=== PATIENT | female | born 1960 | race Caucasian/White ===

== ENCOUNTER 2019-06-24 16:06 | Inpatient (IN) ==
[2019-06-24] MEDS ORDERED: NS 1,000 ML IV ONE (16:39)
[2019-06-24] MEDS ORDERED: SODIUM CHLORIDE 0.9% INJ ONE (16:39)
[2019-06-24] MEDS ORDERED: PHENERGAN IV ONE (16:39)
[2019-06-24] MEDS ORDERED: MORPHINE IV ONE (16:41)
--- NOTE | 2019-06-24 16:47 | PROVIDER DOCUMENTATION ---
HPI-General Adult - General Chief Complaint: Return/Recheck Stated Complaint: +FLU 06/15 NOT BETTER Time Seen by Provider: 06/24/19 16:14 Source: patient, old records Allergies/Adverse Reactions: Patient Allergies Allergy/AdvReac Type Severity Reaction Status Date / Time spironolactone Allergy RASH Verified 06/24/19 16:27 ondansetron [From Zofran] AdvReac HEADACHE Verified 06/24/19 16:27 Home Medications: Home Medication List Medication Instructions Recorded Confirmed Last Taken Type Chlorthalidone 25 mg PO DAILY 06/16/18 06/24/19 Unknown History Lamivudine 150 mg PO DAILY 06/16/18 06/24/19 Unknown History Levothyroxine [Synthroid] 75 mcg PO DAILY 06/16/18 06/24/19 Unknown History Promethazine [Phenergan] 50 mg PO Q6H PRN 06/16/18 06/24/19 Unknown History Tizanidine HCl 2 mg PO BID 06/16/18 06/24/19 Unknown History Tacrolimus [Prograf] 0.5 mg PO DAILY 12/05/18 06/24/19 Unknown History Oseltamivir [Tamiflu] 75 mg PO BID #10 cap 06/15/19 06/24/19 Unknown Rx - History of Present Illness -Gen Adult Nature of Presenting Problems: Patient is a 59yo F who presents with numerous complaints. Complains of L sided neck pain radiating down her L arm, CP, pain with inspiration, cough, nausea/vom iting, and no urinary output x2 days. Reports she was recently diagnosed with the Flu 9 days ago, and has not gotten any better. States hx of heart valve regurgitation for which she sees a Under Water Assistant yearly for. Denies fever/chills, abdominal pain, diarrhea, or SOB. Location of Pain/Injury: reports: neck (L), chest, upper extremity Pain Radiation: reports: arm(s) (L) Quality of Pain: reports: aching Severity: reports: moderate Onset/Duration: reports: other (9 days ago) Timing: reports: still present, getting worse Modifying Factors: improves with: nothing Associated Symptoms: reports: arm pain (L), back/neck pain (L neck), chest pain, cough, genitourinary problems, malaise, nausea, vomiting. denies: diarrhea, f ever/chills, shortness of breath Similar Symptoms Previously?: Yes Recently seen or treated by another doctor?: Yes (seen in ED 9 days ago) Review of Systems - Adult - REVIEW OF SYSTEMS - ADULT Constitutional: reports: no symptoms reported. denies: fever Eyes: reports: no symptoms reported Ears, Nose, Mouth & Throat: reports: no symptoms reported. denies: ear pain, throat pain Cardiovascular: reports: see HPI, chest pain. denies: palpitations, syncope Respiratory: reports: see HPI, cough, pleurisy. denies: shortness of breath Gastrointestinal: reports: see HPI, nausea, vomiting. denies: abdominal pain, diarrhea Genitourinary: reports: see HPI, urinary retention Musculoskeletal: reports: see HPI, neck pain (L side) Integumentary: reports: no symptoms reported Neurological: reports: no symptoms reported Psychiatric: reports: no symptoms reported Endocrine: reports: no symptoms reported Past History - Adult - PAST MEDICAL HISTORY-ADULT Review of Records: reports: Old Records Reviewed, Nursing Assessment Review, Medications Reviewed Major Childhood Illnesses: reports: denies history Gastrointestinal: reports: liver disease (transplant) Genitourinary: reports: kidney disease Endocrine/Immune: reports: thyroid disorder - PRIOR SURGERIES/PROCEDURES Surgical/Procedure History: reports: other (liver transplant) - IMMUNIZATION STATUS Childhood Immunizations: See Nurse Assessment Flu Vaccine: See Nurse Assessment - FAMILY HISTORY Family History: reviewed, not pertinent - SOCIAL HISTORY Smoking: non-smoker Physical Exam-General - PHYSICAL EXAM-ADULT Initial Vital Signs Reviewed: Yes - CONSTITUTIONAL General Appearance: alert, mild distress. negative: lethargic, slow to respond, obtunded - EYES Eyes: PERRL/EOMI, pink conjunctivae. negative: EOM palsy, scleral icterus - HEAD, EARS, NOSE, MOUTH & THROAT HENMT: normocephalic/atraumatic, moist mucous membranes, other (dry mucous membranes). negative: angioedema - NECK Neck: supple, normal inspection, limited range of motion (per patient; patient will not cooperate with exam/will not turn head), other (TTP L c-spine paraspino us muscles) - RESPIRATORY Respiratory: lungs clear, normal breath sounds, no respiratory distress, no accessory muscle use. negative: chest non-tender (TTP central chest), crackles, rales, rhonchi, stridor, wheezing, retractions, splinting, crepitus - CARDIOVASCULAR Cardiovascular: regular rate, rhythm - GASTROINTESTINAL (ABDOMEN) Abdominal Exam: normal bowel sounds, non tender, soft. negative: guarding, rigid, rebound, tenderness - MUSCULOSKELETAL Back Exam: normal inspection Extremity: normal range of motion - SKIN Integumentary: normal color, warm/dry. negative: cyanosis, jaundice, mottled, pallor - NEUROLOGIC Neurologic: grossly normal Progress - PLAN OF CARE/RESULTS Progress/Plan/Lab Results: Vital Signs - 8 hr 06/24/19 16:26 Temperature 99.1 F Pulse Rate 83 Respiratory Rate 18 Blood Pressure 190/84 O2 Sat by Pulse Oximetry 97 Orders Category Date Time Status Nursing- Obtain EKG ONCE Care 06/24/19 16:38 Ordered Saline Loc NOW Care 06/24/19 16:37 Ordered CHEST-2 VIEWS [RAD] Stat Exams 06/24/19 16:38 Ordered c-spine [CERVICAL SPINE COMPLETE] [RAD] Stat Exams 06/24/19 16:38 Ordered CBC WITH ELECTRONIC DIFF [HEME] Stat Lab 06/24/19 16:37 Uncollected CK PROFILE [SP CHEM] Stat Lab 06/24/19 16:38 Uncollected COMPREHENSIVE METABOLIC PANEL [CHEM] Stat Lab 06/24/19 16:37 Uncollected TROPONIN T Stat Lab 06/24/19 16:37 Uncollected URINALYSIS W/POSS RFLX CULT [URINALYSIS] Stat Lab 06/24/19 16:37 Uncollected Morphine Med 06/24/19 16:41 Once 2 mg IV NOW ONE Ns 1000 ml IV Bolus X1 Med 06/24/19 16:39 Ordered 0.9% Sodium Chloride Inj [Ns] 1,000 ml IV 999 mls/hr Promethazine [Phenergan] Med 06/24/19 16:39 Once 12.5 mg IV NOW ONE Sodium Chloride 0.9% Med 06/24/19 16:39 Once 10 ml INJ NOW ONE EKG [EKG] Stat Ther 06/24/19 16:37 Ordered Result Diagrams: 06/24/19 17:14 06/24/19 17:14 - REASSESSMENT Reassessment #1 Time Reassessed: 18:24 Status: unchanged Reassessment Comment: Hospitalist paged for admission - XRAY 1 XRAY: Bilateral XRAY Study: Chest Impression: See EMR Report ([facility] - [address], [address], [place] [address] [facility] - [facility] [place] [address] Department of Imaging Patient: AZALIA VILLAREAL Date: 06/24/19MR#: [id number] : 1960DM Status: REG ERAcct#: [id number] Age/Sex: 59/FRoom/Bed: Loc: ED Ordering Physician: Marycruz Mathias Family Physician: Rina Milton MD Reason for Procedure: Cough; inspiratory pain Signed EXAM: CHEST-2 VIEWS HISTORY: Cough; inspiratory pain TECHNIQUE: Two views COMPARISON: 06/15/2019 FINDINGS: The lungs are well expanded. The heart is not enlarged. The vessels are not distended. There are tiny left lower lobe infiltrates. No pleural effusions. Mild lower thoracic compression fracture. This is unchanged. IMPRESSION: Tiny left lower lobe infiltrates Electronically signed by Vinicio Barrow 06/24/2019 5:22 PM 06/24/19 1722 Interpreting Physician: Vinicio Barrow MD Dictated Date/Time: 06/24/19 1721 cc: Marycruz Carter; Rina Milton MD) 2 XRAY: Bilateral XRAY Study: C-Spine Impression: See EMR Report ([facility] - [address], [address], [place] [address] [place] [place] [address] [place] [address] Department of Imaging Patient: AZALIA VILLAREAL Date: 06/24/19MR#: [id number] : 1960DM Status: REG ERAcct#: [id number] Age/Sex: 59/FRoom/Bed: Loc: ED Ordering Physician: Marycruz Mathias Family Physician: Rina Milton MD Reason for Procedure: Neck pain Signed EXAM: CERVICAL SPINE COMPLETE HISTORY: Neck pain TECHNIQUE: AP and lateral with obliques, five views COMPARISON: None. FINDINGS: There is good alignment to the cervical spine. No precervical soft tissue swelling. No subluxation. Small degenerative bone spurring. IMPRESSION: Mild degenerative changes Electronically signed by Vinicio Barrow 06/24/2019 5:29 PM 06/24/191728 Interpreting Physician: Vinicio Barrow MD Dictated Date/Time: 06/24/191727 cc: Marycruz Carter; Rina Milton MD) - CONSULTS/PCP/HOSPITALIST Notification #1 *Consult/PCP/Hospitalist*: Dr. Gonzalez, Hospitalist Time Discussed: 18:30 Reason/Comments: LLL PNA; CP; immunocompromised Consult Disposition: Admit Departure - Departure Date of Disposition Decision: 06/24/19 Time of Disposition Decision: 18:30 DIAGNOSIS: Neck pain, History of influenza, S/P liver transplant, Dehydration Pneumonia Qualifiers: Pneumonia type: due to unspecified organism Laterality: left Lung location: lower lobe of lung Qualified Code(s): J18.1 - Lobar pneumonia, unspecified organism Chest pain Qualifiers: Chest pain type: unspecified Qualified Code(s): R07.9 - Chest pain, unspecified Nausea & vomiting Qualifiers: Vomiting type: unspecified Vomiting Intractability: unspecified Qualified Code(s): R11.2 - Nausea with vomiting, unspecified Disposition: ADMITTED INPATIENT 09 Certified Medical Emergency: Emergent Condition: Stable Referrals and Follow-Ups: Rina Milton MD [Primary Care Provider] - - Critical Care Note This patient required my direct & personal management of CC.: No Attestation - Physician/ KATE Attestation Patient care was provided by Advanced Practice Provider:: Yes Advanced Practice Provider:: Marycruz Carter Advanced Practice Provider documentation review:: The Mid-level provider documentation, treatment plan and medical decision making was reviewed by the physician who agrees with all treatment and medical decision making by the MLP. The physician spent face to face time with patient:: No Advanced Practice Provider documentation review:: Supervising physician onsite and consulted in the evaluation and care of this patient. The physician did not have a face to face encounter with the patient.
--- NOTE | 2019-06-24 17:23 | ED EKG INTERP ---
This chart was entered by Hanna Russell Scribe, acting as scribe for Ang Aguila MD. EKG Interpretation - EKG Time of EKG reading by physician:: 17:23 EKG Read and Signed by:: Ang Aguila EKG Interpretation (*Must complete 3 of following elements*): Abnormal Rate: 73 Rhythm: NSR [place]: normal QRS: normal SD Interval: normal ST Wave: non-specific ST changes Attestation - Physician/ KATE Attestation Patient care was provided by Advanced Practice Provider:: Yes Advanced Practice Provider:: Marycruz Carter Advanced Practice Provider documentation review:: The Mid-level provider documentation, treatment plan and medical decision making was reviewed by the physician who agrees with all treatment and medical decision making by the P. The physician spent face to face time with patient:: No Advanced Practice Provider documentation review:: Supervising physician onsite and consulted in the evaluation and care of this patient. The physician did not have a face to face encounter with the patient. This chart was documented by the indicated scribe, (Hanna Russell Scribe) and accurately reflects the services I performed and decisions made by me, Ang Aguila MD, as attested by the provider's signature.
--- NOTE | 2019-06-24 17:24 | Diag Imaging Result Doc PS360 ---
EXAM: CHEST-2 VIEWS HISTORY: Cough; inspiratory pain TECHNIQUE: Two views COMPARISON: 06/15/2019 FINDINGS: The lungs are well expanded. The heart is not enlarged. The vessels are not distended. There are tiny left lower lobe infiltrates. No pleural effusions. Mild lower thoracic compression fracture. This is unchanged. IMPRESSION: Tiny left lower lobe infiltrates Electronically signed by Vinicio Barrow 06/24/2019 5:22 PM
--- NOTE | 2019-06-24 17:31 | Diag Imaging Result Doc PS360 ---
EXAM: CERVICAL SPINE COMPLETE HISTORY: Neck pain TECHNIQUE: AP and lateral with obliques, five views COMPARISON: None. FINDINGS: There is good alignment to the cervical spine. No precervical soft tissue swelling. No subluxation. Small degenerative bone spurring. IMPRESSION: Mild degenerative changes Electronically signed by Vinicio Barrow 06/24/2019 5:29 PM
[2019-06-24 17:34] LABS: BASO# 0.02 X1000 (0.0-0.2); BASO% 0.3 % (0.0-0.8); EOS# 0.05 X1000 (0.0-0.7); EOS% 0.7 % (0.0-10.0); HEMATOCRIT 40.7 % (37.0-47.0); HEMOGLOBIN 14.3 g/dL (12.0-16.0); IMM GRAN# 0.04 X1000 (0.0-0.04); IMM GRAN% 0.5 % (0.0-0.5); LYMPH# 0.91 X1000 (1.2-3.4); LYMPH% 12.5 % (20.5-51.1); MCH 33.6 PG (27-31); MCHC 35.1 g/dL (33-37); MCV 95.8 FL (81-99); MONO# 1.21 X1000 (0.11-0.59); MONO% 16.6 % (1.7-9.3); MPV 10.4 FL (7.4-10.4); NEUT# 5.07 X1000 (1.4-6.5); NEUT% 69.4 % (42.2-75.2); PLT 192 X1000 (130-400); RBC 4.25 XMIL (4.2-5.4); RDW 11.6 % (11.5-14.5)
[2019-06-24] MEDS ORDERED: ROCEPHIN 1 GM in NS 50 ML IV ONE (17:41)
[2019-06-24 18:09] LABS: AGAP 19; ALB/GLOB RATIO 0.9; ALBUMIN 3.8 g/dL (3.5-5.0); ALKALINE PHOSPHATASE 59 U/L (32-104); BUN 19 mg/dL (8-22); CALCIUM 8.8 mg/dL (8.8-10.2); CHLORIDE 99 mmol/L (98-107); CK PROFILE 49 U/L (24-173); COSMO 282; CREATININE 0.9 mg/dL (0.5-0.9); ESTIMATED GFR > 60; GLUCOSE 113 mg/dL (70-104); GOT 23 U/L (10-30); GPT 14 U/L (10-36); POTASSIUM 3.7 mmol/L (3.5-5.1); SODIUM 140 mmol/L (136-145); TCO2 22 mmol/L (25-35); TOTAL BILIRUBIN 1.12 mg/dL (0.20-1.00); TOTAL PROTEIN 7.8 g/dL (6.3-8.3)
[2019-06-24 18:24] LABS: URINE SOURCE CLEAN CATCH
[2019-06-24 18:28] LABS: BILIRUBIN URINE SMALL (NEGATIVE); BLOOD URINE NEGATIVE (NEGATIVE); COLOR YELLOW; GLUCOSE URINE NEGATIVE (NEGATIVE); KETONE URINE 40 mg/dL (NEGATIVE); LEUKOCYTES URINE TRACE (NEGATIVE); NITRITE URINE NEGATIVE (NEGATIVE); PROTEIN URINE 200 mg/dL (NEGATIVE); SP GRAVITY URINE 1.034; TURBIDITY URINE HAZY (CLEAR); UROBILINOGEN URINE 6 mg/dL (NORMAL)
[2019-06-24 18:29] LABS: UR EPITHELIAL CELLS >10 /HPF (<10); URINE BACTERIA NEGATIVE /HPF; URINE RBC <10 /HPF (<10)
[2019-06-24 18:43] LABS: UR AMPHETAMINES QUAL NONE DETECTED (NONE DETECT); UR BARBITUATES QUAL NONE DETECTED (NONE DETECT); UR BENZODIAZEPIN QUAL NONE DETECTED (NONE DETECT); UR CANNABINOIDS QUAL PRESUMPTIVE POSITIVE (NONE DETECT); UR COCAINE QUAL NONE DETECTED (NONE DETECT); UR METHADONE QUAL NONE DETECTED (NONE DETECT); UR OPIATES QUAL PRESUMPTIVE POSITIVE (NONE DETECT); UR OXYCODONE QUAL NONE DETECTED (NONE DETECT); UR PCP QUAL NONE DETECTED (NONE DETECT)
[2019-06-24] MEDS ORDERED: CATAPRES PO ONE (20:59)
[2019-06-24] MEDS: MORPHINE IV PRN (23:26)
[2019-06-25] MEDS ORDERED: NS 1,000 ML IV SCH (02:15)
[2019-06-25] MEDS ORDERED: SODIUM CHLORIDE 0.9% INJ SCH (02:20)
[2019-06-25] MEDS ORDERED: PHENERGAN IV PRN (02:20)
[2019-06-25] MEDS: DUONEB (A & A) INH SCH ×3 (02:48→10:47)
[2019-06-25] MEDS: ZITHROMAX 500 MG/NS 500 MG/250 ML IVPB IV SCH (03:00)
[2019-06-25 05:06] LABS: BASO# 0.01 X1000 (0.0-0.2); BASO% 0.1 % (0.0-0.8); EOS# 0.03 X1000 (0.0-0.7); EOS% 0.4 % (0.0-10.0); HEMATOCRIT 36.5 % (37.0-47.0); HEMOGLOBIN 12.7 g/dL (12.0-16.0); IMM GRAN# 0.02 X1000 (0.0-0.04); IMM GRAN% 0.3 % (0.0-0.5); LYMPH# 0.78 X1000 (1.2-3.4); LYMPH% 11.4 % (20.5-51.1); MCH 33.2 PG (27-31); MCHC 34.8 g/dL (33-37); MCV 95.5 FL (81-99); MONO# 1.22 X1000 (0.11-0.59); MONO% 17.8 % (1.7-9.3); MPV 9.9 FL (7.4-10.4); NEUT# 4.81 X1000 (1.4-6.5); PLT 189 X1000 (130-400); RBC 3.82 XMIL (4.2-5.4); RDW 11.5 % (11.5-14.5); WBC 6.87 X1000 (4.8-10.8)
[2019-06-25 05:18] LABS: INR 1.32; PROTIME 16.6 Seconds (11.0-16.0)
[2019-06-25 05:19] LABS: PTT 35.7 Seconds (22.3-41.8)
[2019-06-25 05:56] LABS: AGAP 19; ALB/GLOB RATIO 0.9; ALBUMIN 3.4 g/dL (3.5-5.0); ALKALINE PHOSPHATASE 55 U/L (32-104); BUN 15 mg/dL (8-22); CALCIUM 8.1 mg/dL (8.8-10.2); CHLORIDE 96 mmol/L (98-107); COSMO 271; CREATININE 0.8 mg/dL (0.5-0.9); ESTIMATED GFR > 60; GLUCOSE 106 mg/dL (70-104); GOT 20 U/L (10-30); GPT 11 U/L (10-36); MAGNESIUM 1.2 mg/dL (1.5-2.7); POTASSIUM 3.7 mmol/L (3.5-5.1); SODIUM 135 mmol/L (136-145); TCO2 20 mmol/L (25-35); TOTAL BILIRUBIN 0.99 mg/dL (0.20-1.00)
--- NOTE | 2019-06-25 05:56 | EKG Report ---
Test Performed on : 06/24/2019 5:20:41 PM Test Reason : chest wall pain Blood Pressure : / mmHG Vent. Rate : 077 BPM Atrial Rate : 077 BPM P-R Int : 136 ms QRS Dur : 072 ms QT Int : 406 ms P-R-T Axes : 027 011 038 degrees QTc Int : 459 ms Sinus rhythm. with occasional premature ventricular complexes. Otherwise normal ECG When compared with ECG of 16-JUN-2018 00:19, premature ventricular complexes. are now present Vent. rate has increased BY [address] now depressed in Anterior leads Unconfirmed Result
[2019-06-25] MEDS: PROGRAF PO SCH (06:10)
[2019-06-25] MEDS: SYNTHROID PO SCH (06:10)
--- NOTE | 2019-06-25 06:30 | HISTORY AND PHYSICAL ---
PRIMARY CARE PROVIDER: Dr. Rina Milton MD. She is followed by [facility] for her liver transplantation history. DATE AND TIME: 06/24/2019 at 2100. CHIEF COMPLAINT: The patient has numerous complaints which include neck and back pain, cough, exertional dyspnea as well as some decreased appetite, urinary output, and recently diagnosed with the flu. HISTORY OF PRESENT ILLNESS: Ms. August is a 59-year-old female with a past medical history that is most notable for history of cirrhosis and hepatitis C for which she did undergo a liver transplantation in 2010. She does take medications related to her liver transplant of Prograf and Epivir. The patient reports that on 06/13/2019 she was diagnosed with flu. She did state that she completed her dose of Tamiflu though she states since she was diagnosed she has not felt better. She has continued to have a nonproductive cough, was not initially having shortness of breath, and now is having reported exertional dyspnea. She also reports she has been having some chest pain that is in the left center of her chest. She states she does have a history of pleurisy as well. She is also reporting some neck pain and back pain. She states she does have spinal stenosis in her neck and her back, and does have chronic pain secondary to this. She is reporting some dizziness, though she denies any abdominal pain. She denies any nausea, vomiting, or diarrhea. She has reported that she has had no appetite, and has not been eating or drinking much at all. Though she denies any dysuria, she has reported that she has had decreased urine output. She has reported chills and body aches though states that she did not have a thermometer to check her temperature. She has been reporting melena as well. She denies any quim-gqh-ldvcrjk use of Pepto-Bismol or taking any thing such as iron supplements. She denies any pain, numbness, tingling or swelling in extremities. She is also complaining of a sore throat. Upon evaluation in the ER and given the patient's reported symptoms and recent diagnosis of flu, they did perform a chest x-ray which did show tiny left lower lobe infiltrates. Given her neck pain, they also performed a cervical spine x-ray which showed mild degenerative changes. She has not been febrile since arrival, she has no leukocytosis noted though upon auscultation the patient does have some rhonchi and crackles in bilateral bases. She is reporting a nonproductive cough, and shortness of breath as previously mentioned. Also urinalysis did show positive for leukocytes, and 10 to 20 white blood cells though was negative for nitrites and bacteria. The patient only takes chlorthalidone for her blood pressure though upon arrival to the ER, blood pressure was 191/72. It did remain elevated until the time of my examination. I gave the patient 0.1 mg clonidine, and her blood pressure did improve with the last reading of 174/68. EKG performed in the ER showed a normal sinus rhythm at a rate of 73. Cardiac enzymes were negative. Blood cultures were obtained as well as we have ordered a sputum culture. A urine culture is pending at this time as well. We did repeat an influenza screen as well as a rapid strep given her reports of sore throat. These were all negative. She has been started on antibiotics for community-acquired pneumonia, Rocephin and azithromycin. She also did receive a 1 L normal saline bolus in the ER. We will continue with some gentle IV fluid hydration as well. She will be placed inpatient admission to the medical floor. REVIEW OF SYSTEMS: A 14 point review of systems was conducted with the patient. All were negative except for pertinent positives mentioned above in HPI. PAST MEDICAL HISTORY: 1. Heart murmur. 2. Hypertension. 3. Chronic kidney disease. 4. Hypothyroidism. 5. History of hepatitis C and cirrhosis for which she did undergo liver transplantation. 6. Liver transplantation in 2010. She is followed by the transplant team at [facility]. 7. Chronic neck and back pain secondary to spinal stenosis. 8. History of spinal stenosis. PAST SURGICAL HISTORY: 1. Liver transplantation. 2. Cholecystectomy. SOCIAL HISTORY: The patient denies any tobacco, alcohol or illicit drug use. FAMILY HISTORY: Positive for her mother having history of COPD. Her father had a history of diabetes mellitus. He did pass away secondary to a bleeding stroke. ALLERGIES: Patient has allergies to Aldactone and Zofran. HOME MEDICATIONS: 1. Chlorthalidone 25 mg p.o. daily. 2. Epivir 150 mg p.o. daily. 3. Synthroid 75 mcg p.o. daily. 4. Prograf 0.5 mg p.o. daily. 5. Tizanidine 2 mg p.o. b.i.d. p.r.n. for muscle spasms. DIAGNOSTIC DATA/LABORATORY RESULTS: White blood cell count is 7300, hemoglobin 14.3, hematocrit 40.7, and platelet count 192,000. Sodium 140, potassium 3.7, chloride 99, serum bicarb 22, BUN 19, creatinine 0.9, GFR greater than 60, glucose 113, calcium 8.8, total bilirubin 1.12. Other than this, all other liver function tests were within normal limits. CK 49, troponin less than 0.01. Urinalysis was obtained via clean catch, and was positive for protein, ketone, bilirubin, leukocytes, and white blood cells. It was negative for glucose, blood, nitrites, or bacteria. Urine drug screen was positive for opiates and cannabinoids. EKG showed normal sinus rhythm with nonspecific ST changes at a rate of 73. Chest x-ray showed tiny left lower lobe infiltrates. There is also a mild lower thoracic compression fracture though this was unchanged compared to previous x-ray. Chest x-ray did show tiny left lower lobe infiltrates. Cervical spine x-ray did show mild degenerative changes. PHYSICAL EXAMINATION: VITAL SIGNS: Temperature 98.7 degrees, heart rate 76, respirations 17, blood pressure 174/68, and oxygen saturation is 100% on room air. GENERAL: Ms. August is a very pleasant 59-year-old female. She was resting on the ER stretcher. She was reporting that she was having neck and back pain at the time of my examination though she did not appear to be in any acute distress. She was awake, alert, and able to answer questions appropriately and follow commands. HEENT: Head is atraumatic, normocephalic. Pupils are equal, round and reactive to light. Oral mucosa is dry. Oropharynx is clear. NECK: Supple. Trachea midline. CARDIOVASCULAR: Patient has S1-S2 present. There was a 2/6 systolic murmur noted. There are no other rubs or gallops present. She does have regular rate and rhythm. PULMONARY: Patient has symmetrical chest expansion bilaterally. Lung sounds in bilateral upper simon did have rhonchi noted. She had crackles noted in bilateral bases. ABDOMEN: Soft, nontender, and nondistended. Bowel sounds are present in all 4 quadrants. Normoactive. EXTREMITIES: No cyanosis or edema noted. Pulse, motor, and sensory were intact in all extremities. Radial and pedal pulses are 2+ bilaterally. SKIN: [place], warm, and dry. NEUROLOGICAL: Patient is alert and oriented to person, place, time and situation. She does move all extremities. There are no focal neurological deficits noted. ASSESSMENT AND PLAN: 1. Pneumonia. The patient does have tiny left lower lobe infiltrates noted on the chest x-ray. We have obtained blood cultures. We will obtain a sputum culture. We have placed her with antibiotics of Rocephin and azithromycin. We will do pulmonary toilet with scheduled DuoNeb treatments, incentive spirometry, and frequent encouragement to turn, cough and deep breathe. We will monitor her respiratory status closely. 2. Chest pain. This could be pleuritic in nature. The patient has been reporting a nonproductive cough. She does have a history of having pleurisy. Though, we will continue to monitor this closely, we will do a series of cardiac enzymes and repeat EKG in the morning. 3. Asymptomatic bacteriuria. We are awaiting urine culture results. We will continue to follow. The patient is also taking Rocephin at this time as per above. This would cover her for urinary tract infection. 4. Melena. The patient has been reporting black stools. She denies any xlke-hkx-qsnnkrw use of medicines such as Pepto-Bismol. For further evaluation of her melena, we have ordered Hemoccult stool. We will repeat a CBC in the morning. We will await the results of these tests, we will consider possible consultation with Gastroenterology. We will continue to follow. 5. History of liver transplantation. We will continue her Prograf and Epivir. 6. Chronic neck and back pain. We have continued the patient's Zanaflex though we have provided her with some p.r.n. pain medication and morphine at this time. 7. Deep vein thrombosis prophylaxis. We have provided with sequential compression devices. The patient has been placed on the medical floor with telemetry. She will have vital signs q.4 hours. Do strict intake and output. She will be on a clear liquid diet given her reported melena. We will repeat a CBC, CMP, magnesium, and series of cardiac enzymes in the morning. The patient does take chlorthalidone for her blood pressure though we have held this at this time. I do feel like she is a little volume depleted. She has not been eating or drinking for the past few days. She does not have any edema noted though oral mucosa is dry. She has received 1 L normal saline bolus in the ER. We will continue with a 1 L bag of normal saline at a gentle infusion rate of 75 mL per hour. Further orders and recommendations pending hospital course, diagnostic studies, and physician evaluation. Dictated by GIGI Bustillos for Andre Wells MD cc: Andre Wells MD [facility]
--- NOTE | 2019-06-25 07:08 | EKG Report ---
Test Performed on : 06/25/2019 06:57:11 AM Test Reason : Chest Pain Blood Pressure : / mmHG Vent. Rate : 077 BPM Atrial Rate : 077 BPM P-R Int : 156 ms QRS Dur : 074 ms QT Int : 396 ms P-R-T Axes : 080 082 101 degrees QTc Int : 448 ms Normal sinus rhythm. Nonspecific ST and T wave abnormality Abnormal ECG When compared with ECG of 24-JUN-2019 17:20, (Unconfirmed) premature ventricular complexes. are no longer present Questionable change in QRS axis Confirmed by Keith OLIVARES, Jon Raines ([id number]) on 06/29/2019 9:25:02 AM
[2019-06-25] MEDS: MORPHINE IV PRN ×2 (09:45→19:01)
[2019-06-25] MEDS ORDERED: EPIVIR PO SCH (10:00)
[2019-06-25] MEDS ORDERED: PHENERGAN PO PRN (12:31)
[2019-06-25] MEDS: MAGNESIUM SULFATE 2 GM/S.W.I. 2 GM/50 ML IVPB IV SCH ×2 (13:14→17:09)
[2019-06-25] MEDS: PATIENT'S OWN MED PO SCH (13:14)
[2019-06-25] MEDS: HYGROTON PO SCH (13:14)
[2019-06-25] MEDS ORDERED: TYLENOL PO PRN (14:28)
--- NOTE | 2019-06-25 14:41 | EKG Report ---
Test Performed on : 06/25/2019 2:36:37 PM Test Reason : Baseline EKG Blood Pressure : / mmHG Vent. Rate : 079 BPM Atrial Rate : 079 BPM P-R Int : 158 ms QRS Dur : 078 ms QT Int : 382 ms P-R-T Axes : 077 020 043 degrees QTc Int : 438 ms Sinus rhythm. with premature supraventricular complexes. Nonspecific ST abnormality Abnormal ECG When compared with ECG of 25-JUN-2019 06:57, (Unconfirmed) premature supraventricular complexes. are now present Questionable change in QRS axis Nonspecific T wave abnormality no longer evident in Lateral leads Confirmed by Keith OLIVARES, Jon Raines ([id number]) on 06/29/2019 9:25:57 AM
--- NOTE | 2019-06-25 14:51 | PROGRESS NOTE ---
DATE: 06/25/2019 INTERVAL HISTORY: Ms. August was admitted for extreme fatigue, muscle ache, joint ache, neck pain, and shoulder pain since about 5 to 7 days duration. She did not have any other acute overnight events. SUBJECTIVE: She is sleepy. She denies any chest pain or shortness of breath. However, she complains of neck pain and extreme muscle aches. Her is at bedside. She has not had a bowel movement for 3 days. OBJECTIVE: Vital Signs: Currently, temperature 98.3 degrees, pulse 83, respiratory rate 18, blood pressure 170/65, she is saturating 97% on room air. General: She is not in distress, except pain. HEENT: Oral cavity is dry. Lungs: Air entry bilaterally equal. No wheeze or rhonchi. She does have inspiratory crackles in bilateral infrascapular region. Heart: S1, S2 normal. Appears regular. No murmur, rub, or gallop. Abdomen: Soft, nontender. Extremities: She does not have lower extremity edema, though she does complain of right knee pain, but I could not appreciate any effusion or erythema. However, there is localized tenderness. Neurologic: She is alert and oriented x3. She is able to move all extremities above ground level on verbal stimuli. LABORATORY DATA: Her hemoglobin and platelets are normal. Coagulation is normal. She does have hyponatremia, hypochloremia, low bicarbonate, normal kidney function, hypomagnesemia currently being repleted. Her troponins were negative. Her urine screen was positive for opiates and cannabis, and she says that several days ago, she did try marijuana for body ache. However, she is not providing any details despite prompting. ASSESSMENT AND PLAN: 1. Bilateral lower lobe pneumonia based on crackles on examination. Follow up urine Streptococcus antigen. This is post influenza pneumonia. I will continue intravenous ceftriaxone and azithromycin. She is not making sputum. 2. Extreme muscle ache, body ache, fatigue, and arthralgia. This is likely in the setting of post influenza syndrome. I will get ESR, CRP, and creatine phosphokinase levels. She is receiving intravenous fluid resuscitation. I will give her acetaminophen as needed for symptomatic relief. I will also follow up with TSH. 3. Essential hypertension. Resume her home chlorthalidone. It could have caused hypomagnesemia, which I am currently repeating. 4. History of hepatitis C related liver cirrhosis, status post liver transplantation. Continue her home Lamivudine and tacrolimus. I will follow up with tacrolimus levels tomorrow morning. 5. Disposition. I will order Physical Therapy. The patient would likely need rehab for further care. Plan of care extensively discussed with the patient and her at bedside. Their questions were satisfactorily answered. cc: Randell Martinez MD MTDD
[2019-06-25] MEDS: MIRALAX PO SCH (15:53)
[2019-06-25] MEDS: ROCEPHIN 1 GM in NS 50 ML IV SCH (18:56)
[2019-06-26] MEDS: ZANAFLEX PO PRN ×2 (00:24→12:35)
[2019-06-26] MEDS: MIRALAX PO SCH ×3 (00:25→20:23)
[2019-06-26] MEDS: ZITHROMAX 500 MG/NS 500 MG/250 ML IVPB IV SCH (02:08)
[2019-06-26] MEDS: SYNTHROID PO SCH (06:31)
[2019-06-26] MEDS: PROGRAF PO SCH (06:31)
[2019-06-26] MEDS: PATIENT'S OWN MED PO SCH ×2 (06:32→15:57)
[2019-06-26 07:07] LABS: FREE T4 1.44 ng/dL (0.93-1.70); TSH 2.27 uIUmL (0.27-4.20)
[2019-06-26] MEDS: HYGROTON PO SCH (09:20)
[2019-06-26] MEDS: MORPHINE IV PRN ×3 (09:29→23:25)
--- NOTE | 2019-06-26 20:13 | PROGRESS NOTE ---
DATE: 06/25/2019 INTERVAL HISTORY: No acute events overnight. SUBJECTIVE: Ms. August is feeling slightly better. Her stiffness is also better. OBJECTIVE: Vital signs: Temperature 98.7 degrees, pulse 75, respiratory rate 24, blood pressure 130/59, saturating 98% room air. On physical examination, not in acute distress. Oral cavity is moist. Air entry bilaterally equal. No wheeze, rhonchi or crackles. S1, S2 normal. No murmur or gallop. Abdomen soft, nontender. No lower edema. She does have stiffness today affecting her left shoulder and left wrist, which is also painful. She is able to move her right shoulder and right elbow better. She is also able to move her neck better. She has complaints of stiffness and pain around her neck, upper torso, back and shoulders. LABORATORY DATA: No CBC or BMP today. Her magnesium has normalized. Microbiology: No positive data. Her sedimentation rate and C-reactive protein are elevated. Sedimentation rate is 83 and C- reactive protein is 69. TSH within normal limit. ASSESSMENT AND PLAN: 1. Bilateral lower lobe pneumonia based on crackles on examination. Follow up urine Streptococcus antigen. Continue intravenous ceftriaxone and azithromycin. 2. Proximal muscle stiffness and myalgia affecting neck, shoulder, proximal torso and bilateral lower extremities. She also has elevated C-reactive protein and sedimentation rate. Differential includes postinfluenza myalgia, polymyalgia rheumatica, tacrolimus toxicity, other autoimmune diseases, rheumatic diseases. I will follow up with antinuclear antibody, rheumatoid arthritis factor, anti-CCP, tacrolimus level and start the patient on low-dose prednisone 50 mg daily. Follow up with repeat electrolytes. 3. Essential hypertension. Continue home chlorthalidone. Follow up BMP and magnesium. 4. History of hepatitis C leading to liver cirrhosis, status post liver transplantation. Continue home lamivudine and tacrolimus. Follow up tacrolimus levels. 5. Disposition: Continue to monitor the patient inside hospital. Continue physical therapy. She refuses to go to rehab. cc: Randell Martinez MD
[2019-06-26] MEDS: ROCEPHIN 1 GM in NS 50 ML IV SCH (20:18)
[2019-06-26] MEDS: PREDNISONE PO SCH (20:18)
[2019-06-27] MEDS: ZITHROMAX 500 MG/NS 500 MG/250 ML IVPB IV SCH (01:24)
[2019-06-27] MEDS: ZANAFLEX PO PRN ×2 (02:12→21:27)
[2019-06-27] MEDS: MORPHINE IV PRN (05:57)
[2019-06-27] MEDS: SYNTHROID PO SCH (05:59)
[2019-06-27] MEDS: PROGRAF PO SCH (05:59)
[2019-06-27 07:07] LABS: BASO# 0.01 X1000 (0.0-0.2); BASO% 0.1 % (0.0-0.8); HEMATOCRIT 34.1 % (37.0-47.0); LYMPH# 0.72 X1000 (1.2-3.4); MCH 33.6 PG (27-31); MCHC 35.2 g/dL (33-37); MCV 95.5 FL (81-99); MONO# 0.67 X1000 (0.11-0.59); MONO% 8.4 % (1.7-9.3); MPV 10.3 FL (7.4-10.4); NEUT# 6.59 X1000 (1.4-6.5); NEUT% 82.5 % (42.2-75.2); PLT 218 X1000 (130-400); RBC 3.57 XMIL (4.2-5.4); RDW 11.3 % (11.5-14.5); WBC 7.99 X1000 (4.8-10.8)
[2019-06-27 07:09] LABS: CHLORIDE 96 mmol/L (98-107); POTASSIUM 3.5 mmol/L (3.5-5.1); SODIUM 136 mmol/L (136-145)
[2019-06-27 07:18] LABS: MAGNESIUM 1.6 mg/dL (1.5-2.7)
[2019-06-27 07:27] LABS: BUN 22 mg/dL (8-22); CALCIUM 9.2 mg/dL (8.8-10.2); CREATININE 0.8 mg/dL (0.5-0.9); ESTIMATED GFR > 60; GLUCOSE 138 mg/dL (70-104); TCO2 23 mmol/L (25-35)
[2019-06-27 08:08] LABS: AGAP 17
[2019-06-27 08:11] LABS: COSMO 277
[2019-06-27] MEDS: HYGROTON PO SCH (09:36)
[2019-06-27] MEDS: PREDNISONE PO SCH (09:36)
[2019-06-27] MEDS: PATIENT'S OWN MED PO SCH (09:37)
[2019-06-27] MEDS: MIRALAX PO SCH ×2 (09:38→20:13)
[2019-06-27] MEDS ORDERED: ULTRAM PO PRN (16:02)
[2019-06-27] MEDS: NORCO-5 PO PRN ×2 (17:26→22:07)
[2019-06-27] MEDS: MAGNESIUM SULFATE 2 GM/S.W.I. 2 GM/50 ML IVPB IV SCH ×3 (17:34→20:13)
--- NOTE | 2019-06-27 18:34 | PROGRESS NOTE ---
DATE: 06/27/2019 INTERVAL HISTORY: No acute events overnight. Ms. August is feeling significantly better after starting on oral steroids. She is requesting some pain medications for her generalized body aches. She is requesting [place], it works better for her. SUBJECTIVE: Ms. August states she is feeling significantly better after starting prednisone yesterday. She was able to come out of bed and move around. She is now willing to take a shower as well. We discussed about differential diagnosis of her muscle aches. OBJECTIVE: Vital signs: Temperature 97.8 degrees, pulse 75, respiratory rate 19, blood pressure 150/77, saturating 98% on room air. On physical examination, not in any acute distress. Oral cavity is moist. Air entry bilaterally equal. No wheeze or rhonchi. She does have inspiratory crackles in bilateral infrascapular region. S1, S2 normal. No murmur or gallop. Abdomen is soft, nontender. No lower extremity edema. She does have some pain at the left wrist joint because of infiltrated IV line; however, her movements are intact in right shoulder joint. There is no synovial inflammation or effusion in interphalangeal joints. LABORATORY DATA: Labs suggestive of normal hemoglobin, normal platelet count, normal electrolytes and low magnesium, which is currently being replenished. Her rheumatoid arthritis factor is elevated. Urine Streptococcus pneumoniae antigen was negative. No positive culture data. DIAGNOSTIC DATA: No new imaging. ASSESSMENT AND PLAN: 1. Bilateral lower lobe pneumonia based on crackles on examination as well as chest x-ray findings. Continue intravenous ceftriaxone and azithromycin. Follow up repeat chest x-ray tomorrow. 2. Proximal muscle stiffness and myalgia predominantly affecting neck, shoulder, proximal torso and bilateral lower extremities with elevated C-reactive protein and sedimentation rate. Differential includes polymyalgia rheumatica, postinfluenza myalgia, tacrolimus toxicity or other autoimmune diseases. Her rheumatoid arthritis factor is elevated, though anti-CCP, antinuclear antibody and tacrolimus levels are pending. She responded dramatically to 15 mg oral prednisone, which I will continue. I will follow up with chest x-ray tomorrow. 3. Essential hypertension. Continue home chlorthalidone and replenish magnesium for hypomagnesemia. 4. History of hepatitis C leading to liver cirrhosis, status post liver transplantation. Continue home lamivudine and tacrolimus, the levels of which are pending. 5. Disposition: I will monitor the patient inside the hospital for 24-48 hours. Plan of care discussed with the patient and her questions have been answered. cc: Randell Martinez MD
[2019-06-27] MEDS: ROCEPHIN 1 GM in NS 50 ML IV SCH (21:23)
[2019-06-28] MEDS: ZITHROMAX 500 MG/NS 500 MG/250 ML IVPB IV SCH (03:50)
[2019-06-28] MEDS: SYNTHROID PO SCH (06:24)
[2019-06-28] MEDS: PROGRAF PO SCH (06:24)
--- NOTE | 2019-06-28 08:16 | Diag Imaging Result Doc PS360 ---
EXAM: CHEST-2 VIEWS 06/28/2019 HISTORY: f/up pneumonia TECHNIQUE: PA and lateral chest COMMENT: There is platelike atelectasis in both lower lobes. There has been some improvement with respect to the posterior left lower lobe compared to 06/24/2019. IMPRESSION: Improved atelectasis and/or pneumonia. Electronically signed by Jack Brasher 06/28/2019 8:14 AM
[2019-06-28] MEDS: PREDNISONE PO SCH (08:34)
[2019-06-28] MEDS: HYGROTON PO SCH (08:38)
[2019-06-28] MEDS: NORCO-5 PO PRN ×2 (08:38→19:47)
[2019-06-28] MEDS: PATIENT'S OWN MED PO SCH (16:32)
[2019-06-28] MEDS: MIRALAX PO SCH ×2 (16:32→20:43)
--- NOTE | 2019-06-28 18:29 | PROGRESS NOTE ---
DATE: 06/28/2019 INTERVAL HISTORY: No acute events overnight. SUBJECTIVE: Ms. August is feeling significantly better. Denies any more stiffness. She was able to take a shower. VITAL SIGNS: Temperature 97.9 degrees, pulse 63, respiratory rate 19, blood pressure 140/70, saturating 97% room air. PHYSICAL EXAMINATION: General: Not in acute distress. HEENT: Oral cavity is moist. Lungs: Air entry bilaterally equal. No wheeze, rhonchi or crackles. Cardiovascular: S1, S2 normal. No murmur or gallop. Abdomen: Soft, nontender. Extremities: No lower extremity edema. She denies any more muscle pain or stiffness. LABORATORY DATA: No new labs today. ASSESSMENT AND PLAN: 1. Bilateral lower lobe pneumonia. Continue intravenous ceftriaxone and azithromycin. Today is day 4 of antibiotic and the plan is to stop antibiotics tomorrow, at the time of discharge. 2. Proximal muscle stiffness, myalgia affecting neck, shoulder, proximal torso, and bilateral lower extremities with elevated inflammation marker. Differential includes polymyalgia rheumatica, considering her age and dramatic response to low-dose steroids. Post-influenza myalgia, tacrolimus toxicity, other autoimmune disease such as rheumatoid arthritis are also possible. Follow up anti-CCP, antinuclear antibody, tacrolimus levels, Lyme disease titers. Continue current dose of steroids and outpatient Rheumatology follow-up. 3. Essential hypertension. Continue home chlorthalidone. 4. History of hepatitis C with liver cirrhosis, status post liver transplantation. Continue home lamivudine, tacrolimus. DISPOSITION: The patient is medically ready to be discharged and I discussed with her discharging today. She initially agreed and my plan was to discharge her. However, later on she changed her mind and she wanted to go home tomorrow. Plan of care discussed with the patient and her at bedside. cc: Randell Martinez MD
[2019-06-28] MEDS: ZANAFLEX PO PRN (19:47)
[2019-06-28] MEDS: ROCEPHIN 1 GM in NS 50 ML IV SCH (19:47)
[2019-06-29] MEDS: ZITHROMAX 500 MG/NS 500 MG/250 ML IVPB IV SCH (04:01)
[2019-06-29] MEDS: SYNTHROID PO SCH (06:07)
[2019-06-29] MEDS: PROGRAF PO SCH (06:07)
[2019-06-29 07:17] VITALS: BP 151/83
[2019-06-29] MEDS ORDERED: ROCEPHIN 1 GM in NS 50 ML IV ONE (07:30)
[2019-06-29] MEDS: PREDNISONE PO SCH (08:14)
[2019-06-29] MEDS: MIRALAX PO SCH (08:25)
[2019-06-29 13:50] LABS: LYME DISEASE SCREEN SEE COMMENTS
[2019-06-29] MEDS: PATIENT'S OWN MED PO SCH (14:22)
--- NOTE | 2019-06-30 09:55 | DISCHARGE SUMMARY ---
ADMISSION DATE: 06/24/2019 DISCHARGE DATE: 06/29/2019 DISCHARGE DISPOSITION: Home. DISCHARGE CONDITION: Hemodynamically stable. She is breathing well on room air. She denies any stiffness or pain around the neck, upper back, or torso. She denies any shortness of breath. Her cough has significantly improved. We discussed about polymyalgia rheumatica. We discussed about steroids. We discussed about pending blood tests, following up with her regular physician and windlace machine operator. We also discussed about the possibility of postinfluenza symptoms. I answered all of her questions. DISCHARGE DIAGNOSES: 1. Bilateral lower lobe pneumonia. 2. Suspected polymyalgia rheumatica versus postinfluenza muscle stiffness and myalgia versus other etiology. 3. Essential hypertension. 4. Asymptomatic bacteriuria. OTHER DIAGNOSES: 1. History of chronic hepatitis C leading to cirrhosis. 2. History of liver transplantation for cirrhosis. 3. History of essential hypertension. 4. History of cholecystectomy. 5. History of hypothyroidism. DISCHARGE MEDICATIONS: 1. Chlorthalidone 25 mg daily. 2. Lamivudine 150 mg daily. 3. Promethazine 50 mg every 6 hours as needed for nausea and vomiting. 4. Tacrolimus 0.5 mg daily. 5. Levothyroxine 75 mcg daily. 6. Tizanidine 2 mg b.i.d. 7. Prednisone 15 mg daily for 14 days. She was advised to have a followup with her regular physician and foundry worker apprentice within 7 days, and discuss about decreasing the dose as tolerated. VITALS: At the time of discharge, temperature of 97.8 degrees, pulse 57, respiratory rate 16, blood pressure 150/80, saturating 100% on room air. PHYSICAL EXAMINATION: Not in acute distress. Oral cavity is moist. Lungs: Air entry bilaterally equal. No wheeze or rhonchi. Mild crackles in the infrascapular region which are significantly improved. S1, S2 normal. No murmur, rub, or gallop. Abdomen: Soft, nontender. No lower extremity edema. She is alert and oriented x3. She does not have any neck pain or shoulder pain. She is coming out of bed and taking her shower without any difficulty. LABORATORY DATA: At the time of discharge, WBCs 7.9, hemoglobin 12, platelets 218,000. Chloride 96, carbon dioxide 23, BUN 22, creatinine 0.8. Rheumatoid factor is elevated to 51. Urine streptococcal antigen is negative. Urine toxicology positive for cannabis and opiates. TSH is 2.27, free T4 is 1.4. Sedimentation rate is elevated to 83. C-reactive protein is elevated to 70. MICROBIOLOGY: Throat culture, group A rapid streptococcal antigen, influenza screen, blood culture, and urine culture did not have any growth. SIGNIFICANT IMAGING: Cervical spine x-ray on June 24 had mild degenerative changes. Chest x- ray on June 24 had a tiny left lower lobe infiltrate with suspicion of pneumonia. Repeat chest x-ray on June 28 had improved infiltrates. HOSPITAL COURSE SUMMARY: Ms. August is a 59-year-old, lady with a past medical history of a liver transplant for chronic hepatitis C, who was recently diagnosed with influenza 1 week prior to presentation and was treated, who came in on June 24 with chief complaints of neck stiffness, back pain, cough, exertional dyspnea, decreased appetite, and significant pain affecting her neck, upper back, torso region. Apparently, her symptoms had started after influenza and were progressively getting worse. In the emergency room, the patient was detected to have an infiltrate in the left lower lobe and on examination, she had crackles in both of her lower lobes of the lungs. Her urine streptococcal antigens were negative and she did not have leukocytosis. However, she complained of cough and shortness of breath. On examination, she also had significant stiffness affecting the neck, torso, upper back, and shoulders with decreased range of movement, which were also painful. She was diagnosed with bilateral lower lobe pneumonia and was started on intravenous antibiotics, considering she had significantly elevated sedimentation rate and CRP. She was also started on oral prednisone. After getting the first dose of oral prednisone at 15 mg, her symptoms significantly improved the next day, and her movement and her pain had resolved. With intravenous antibiotics, her breathing effort improved and her air entry also improved, and her crackles were resolving. It was decided to discharge her. She has completed 5 days of intravenous antibiotics and would not need any antibiotics for pneumonia. It was thought that her musculoskeletal symptoms were related to polymyalgia rheumatica versus postinfluenza musculoskeletal symptoms versus other etiologies. Considering elevated inflammatory markers and remarkable improvement on low dose of steroids, polymyalgia rheumatica was certainly a likelihood. She was advised to follow up with remaining blood tests which were still in the lab including antinuclear antibody, anti-CCP, Lyme disease screen, and tacrolimus levels. TIME SPENT: 24 minutes of time were spent in discharging this patient. Plan of care was extensively discussed with her. She was advised to follow up with windlace machine operator within a week. cc: MD DYAN Kate
== END 2019-06-29 11:19 | disposition home health service (06) | DRG 194 ==
LOC: SUPCPDRO → ED 16:06 → 4N 21:27 → SUATTDRO 21:27
PROVIDERS: ADMIT Internal Medicine; ATTEND Internal Medicine